=== PATIENT | male | born 1945 | race Caucasian/White ===

== ENCOUNTER → 2018-09-02 | Outpatient (CLI) | payer OTHER | LOC: RAD 11:09 | DX: J44.9 Chronic obstructive pulmonary disease, unspecified (principal) ==

== ENCOUNTER → 2019-01-04 | Outpatient (CLI) | payer OTHER | LOC: RAD 10:03 | DX: J44.9 Chronic obstructive pulmonary disease, unspecified (principal); J30.1 Allergic rhinitis due to pollen; R76.8 Other specified abnormal immunological findings in serum; K21.9 Gastro-esophageal reflux disease without esophagitis; R21 Rash and other nonspecific skin eruption; L29.9 Pruritus, unspecified; D72.1 Eosinophilia ==

== ENCOUNTER → 2019-03-17 | Outpatient (CLI) | payer OTHER | LOC: NUC 11:38 | DX: I48.91 Unspecified atrial fibrillation (principal); I10 Essential (primary) hypertension; E78.5 Hyperlipidemia, unspecified; J44.9 Chronic obstructive pulmonary disease, unspecified; Z87.891 Personal history of nicotine dependence ==

== ENCOUNTER → 2019-03-21 | Outpatient (CLI) | payer OTHER ==
--- NOTE | 2019-03-21 10:03 | 2DMMODE ---
[facility] [place] [address] 2 D/M-MODE ECHOCARDIOGRAM Name: RAMONITAJACQUIE L Room #: REG [facility]#: [id number] ������������� Admission: 03/21/19 ������������� Attend Phys: Jerald Hodges MD Discharge: ��� ������������� ��� Date of : 49 Date of Service: 03/21/19 1002 �� Report #: [id number] �������� ��������������������������������������������[id number] THIS REPORT FOR: //name// APPROVED REPORT Study performed: 03/21/2019 08:58:17 EXAM: Comprehensive 2D, Doppler, and color-flow Echocardiogram Patient Location: Out-Patient Status: routine BSA: 1.89 HR: 66 bpm BP: 154/80 mmHg Rhythm: Sinus arrhythmia Other Information Study Quality: Good Indications Atrial Fibrillation 2D Dimensions RVDd: 34.21 mm IVSd: 12.00 (7-11mm) LVOT Diam: 20.95 (18-24mm) LVDd: 43.72 mm PWd: 9.42 (7-11mm) Ascending Ao: 32.33 (22-36mm) LVDs: 31.09 (25-40mm) Aortic Root: 33.91 mm Volumes Left Atrial Volume (Systole) Single Plane 4CH: 38.47 mL Single Plane 2CH: 46.93 mL LA ESV Index: 24.00 mL/m2 Aortic Valve AoV Peak Lonny.: 1.36 m/s AO Peak Gr.: 7.40 mmHg LVOT Max P.46 mmHg LVOT Max V: 1.17 m/s LO Vmax: 2.96 cm2 Mitral Valve E/A Ratio: 0.8 MV Decel. Time: 215.71 ms MV E Max Lonny.: 0.83 m/s [facility] [address] [place] [address] 2 D/M-MODE ECHOCARDIOGRAM Name: JACQUIE SHIPMAN Room #: [facility]#: [id number] ������������� Admission: 03/21/19 ������������� Attend Phys: Jerald Hodges MD Discharge: ��� ������������� ��� Date of : 49 Date of Service: 03/21/19 1002 �� Report #: [id number] �������� ��������������������������������������������[id number] MV A Lonny.: 1.08 m/s MV PHT: 62.55 ms IVRT: 96.89 ms Pulmonary Valve PV Peak Lonny.: 1.02 m/s PV Peak Gr.: 4.13 mmHg Pulmonary Vein P Vein S: 0.70 m/s P Vein A: 0.32 m/s P Vein D: 0.39 m/s P Vein A Dur.: 138.4 msec P Vein S/D Ratio: 1.79 Tricuspid Valve RAP Estimate: 5.00 mmHg Left Ventricle The left ventricle is normal size. There is normal LV segmental wall motion. Mild basal septal hypertrophy is present. Left ventricular systolic function is normal. LVEF is 60%. Mild diastolic dysfunction is present (impaired relaxation pattern). Right Ventricle The right ventricle is normal size. The right ventricular systolic function is normal. Atria The left atrium size is normal. The right atrium size is normal. Aortic Valve Aortic valve is mildly calcified. No aortic regurgitation is present. There is no aortic valvular stenosis. Mitral Valve The mitral valve is normal in structure. Trace mitral regurgitation. Tricuspid Valve The tricuspid valve is normal in structure. There is no tricuspid valve regurgitation noted. Unable to assess PA pressure. Pulmonic Valve The pulmonary valve is normal in structure. Trace to mild pulmonic regurgitation. Great Vessels [facility] [place] [address] 2 D/M-MODE ECHOCARDIOGRAM Name: JACQUIE SHIPMAN Room #: REG [facility]#: [id number] ������������� Admission: 03/21/19 ������������� Attend Phys: Jerald Hodges MD Discharge: ��� ������������� ��� Date of : 49 Date of Service: 03/21/19 1002 �� Report #: [id number] �������� ��������������������������������������������[id number] The aortic root is normal in size. The ascending aorta is normal in size. IVC is normal in size and collapses >50% with inspiration. Pericardium There is no pericardial effusion. <Conclusion> The left ventricle is normal size. Left ventricular systolic function is normal. Mild diastolic dysfunction is present (impaired relaxation pattern). The right ventricle is normal size. The left atrium size is normal. Aortic valve is mildly calcified. Trace mitral regurgitation. There is no tricuspid valve regurgitation noted. ��������������������������������������������� <ELECTRONICALLY SIGNED> ���������������������������������������� By: Jerald Hodges MD ��������������������������������������������� 03/21/19 1002 1002 1002 Jerald Hodges MD /INF
== END ==
LOC: CV
DX: I08.8 Other rheumatic multiple valve diseases (principal); I48.91 Unspecified atrial fibrillation; Z88.8 Allergy status to other drugs, medicaments and biological substances

== ENCOUNTER → 2019-04-20 | Outpatient (CLI) | payer OTHER ==
[~2019-04-20] MED LIST: ACCUNEB SO1.25 MG/1 INH; ASMANEX220 MC2; ATENOLOL 50MG T50 M1 PO; CLARITIN10 MG PO; COZAAR 25 MG TA25 M1 PO; FLECAINIDE ACET50 M1 PO; GABAPENTIN 100100 MG PO; KLOR-CON 1010 MEQ PO; METHOTREXATE 22.5 MG PO; OMEPRAZOLE 20 M20 M1 PO; PREDNISONE 10 M10 MG PO; PREDNISONE 5 MG5 MG PO; SIMVASTATIN40 MG PO; XARELTO20 MG PO; ZYLOPRIM300 MG PO
[2019-04-20 09:22] LABS: HEMATOCRIT 37.8 % (42.0-52.0); HEMOGLOBIN 13.2 gm/dL (14.0-18.0); MCH 36.1 pg (26.0-34.0); MCV 103.2 fL (80.0-100.0); RBC 3.66 mil/uL (4.50-6.00); RDW 13.8 % (10.5-14.5); WBC 6.5 thou/uL (4.0-11.0)
[2019-04-20 09:31] LABS: ALBUMIN 3.7 g/dL (3.4-5.0); CALCIUM 9.2 mg/dL (8.5-10.1); POTASSIUM 4.7 mmol/L (3.5-5.1); TOTAL BILIRUBIN 0.7 mg/dL (<0.1-1.0); TOTAL PROTEIN 6.7 g/dL (6.4-8.2)
== END ==
LOC: CAT 08:29
PROVIDERS: Internal Medicine Cardiovascular Disease
DX: I48.91 Unspecified atrial fibrillation (principal); I25.10 Atherosclerotic heart disease of native coronary artery without angina pectoris; M47.814 Spondylosis without myelopathy or radiculopathy, thoracic region

== ENCOUNTER → 2019-04-21 | Outpatient (CLI) | payer OTHER ==
[~2019-04-21] VITALS: Ht 175.3 cm; Wt 74.8 kg
[2019-04-21 07:09] VITALS: BP 189/78
--- NOTE | 2019-04-21 08:44 | TEE ---
[facility] [address] [place] [address] TRANSESOPHAGEAL ECHOCARDIOGRAM Name: RAMONITAJACQUIE Maci Room #: REG [facility]#: [id number] Admission: 04/21/19 Attend Phys: Vitor rCuz Discharge: Date of : 49 Date of Service: 04/21/19 0843 Report #: [id number] THIS REPORT FOR: //name// APPROVED REPORT Study performed: 04/21/2019 07:30:02 EXAM: Comprehensive 2D, Doppler, and color-flow Echocardiogram Patient Location: Out-Patient Room #: CVL Status: routine BSA: 1.89 HR: 65 bpm BP: 208/90 mmHg Rhythm: NSR Other Information Study Quality: Good Indications Atrial Fibrillation Echo Enhancing Agent Indication: Rule out Shunt Agent(s) / Amount(s) Used: Agitated Saline 6 cc Procedure After obtaining informed consent, patient underwent transesophageal echo in the [employer]. Type of Sedation : Conscious Sedation Sedation was achieved intravenously with: Versed (3.5) Fentanyl (100) Transesophageal probe was inserted and advanced into esophagus without difficulty by Diaz Ríos MD. The MARIMAR was performed without complications. Throughout the procedure, the blood pressure, pulse oximetry, cardiac rhythm, and rate were monitored. The patient tolerated the procedure without adverse effects. Recovery from conscious sedation was uneventful and vital signs were stable. Left Ventricle The left ventricle is normal size. There is normal LV segmental wall motion. There is normal left ventricular wall thickness. Left [facility] [address] [place] [address] TRANSESOPHAGEAL ECHOCARDIOGRAM Name: JACQUIE SHIPMAN Room #: REG [facility]#: [id number] Admission: 04/21/19 Attend Phys: [facility] Discharge: Date of : 49 Date of Service: 04/21/19 0843 Report #: [id number] ventricular systolic function is normal. LVEF is 55-60%. Right Ventricle The right ventricle is normal size. The right ventricular systolic function is normal. Atria The left atrium size is normal. No thrombus is visualized in the left atrium or appendage. No shunting noted with contrast bubble injection. The right atrium size is normal. Aortic Valve Aortic valve is trileaflet. No aortic regurgitation is present. There is no aortic valvular stenosis. Mitral Valve The mitral valve is normal in structure. Trace mitral regurgitation. Tricuspid Valve The tricuspid valve is normal in structure. Trace tricuspid regurgitation. Pulmonic Valve The pulmonary valve is normal in structure. Trace pulmonic regurgitation. Great Vessels The aortic root is normal in size. Mild atherosclerosis throughout aorta Pericardium There is no pericardial effusion. <Conclusion> Left ventricular systolic function is normal. There is normal LV segmental wall motion. LVEF is 55-60%. No thrombus is visualized in the left atrium or appendage. No shunting noted with contrast bubble injection. Aortic valve is trileaflet. No aortic regurgitation or stenosis The mitral valve is normal in structure. Trace mitral regurgitation. [facility] [address] [place] [address] TRANSESOPHAGEAL ECHOCARDIOGRAM Name: JACUQIE SHIPMAN Room #: REG [facility]#: [id number] Admission: 04/21/19 Attend Phys: [facility] Discharge: Date of : 49 Date of Service: 04/21/19842 Report #: [id number] Mild atherosclerosis throughout aorta There is no pericardial effusion. <ELECTRONICALLY SIGNED> By: Diaz Ríos MD, FACC 04/21/1941 2 2 Diaz Ríos MD, FACC /INF
== END | disposition home or self-care (01) ==
LOC: CATH 06:22
DX: I34.0 Nonrheumatic mitral (valve) insufficiency (principal); I70.0 Atherosclerosis of aorta; I10 Essential (primary) hypertension; J43.9 Emphysema, unspecified; I73.9 Peripheral vascular disease, unspecified; K21.9 Gastro-esophageal reflux disease without esophagitis; E78.5 Hyperlipidemia, unspecified; Z82.49 Family history of ischemic heart disease and other diseases of the circulatory system; Z87.891 Personal history of nicotine dependence; Z98.890 Other specified postprocedural states; Z79.899 Other long term (current) drug therapy

== ENCOUNTER 2019-05-18 06:31 | Observation (INO) | payer OTHER ==
[2019-05-18] VITALS (15 sets, daily range): BP systolic 117–180; BP diastolic 45–95
[~2019-05-18] VITALS: Ht 175.3 cm; Wt 78.5 kg
[2019-05-18 07:26] LABS: ABSOLUTE NEUTROPHILS 3.1 thou/uL (1.4-8.2); BASOPHILS 0.6 % (0.0-2.0); EOSINOPHILS 11.6 % (0.0-3.0); HEMATOCRIT 38.9 % (42.0-52.0); HEMOGLOBIN 13.3 gm/dL (14.0-18.0); LYMPHOCYTES 19.7 % (24.0-44.0); MCHC 34.1 g/dL (28.0-37.0); MCV 105.5 fL (80.0-100.0); MONOCYTES 10.2 % (1.0-8.0); PLATELET COUNT 227 thou/uL (150-400); POLYS 57.9 % (36.0-66.0); RBC 3.69 mil/uL (4.50-6.00); RDW 13.5 % (10.5-14.5); WBC 5.3 thou/uL (4.0-11.0)
[2019-05-18 07:36] LABS: CALCIUM 8.9 mg/dL (8.5-10.1); POTASSIUM 4.7 mmol/L (3.5-5.1)
[2019-05-18 07:39] LABS: APTT 30.6 Seconds (24.5-32.8); PROTIME 10.3 Seconds (9.3-11.4)
[2019-05-18 07:43] LABS: ALBUMIN 3.3 g/dL (3.4-5.0); TOTAL BILIRUBIN 0.5 mg/dL (<0.1-1.0); TOTAL PROTEIN 6.2 g/dL (6.4-8.2)
[2019-05-19 04:59] VITALS: BP 122/51
[2019-05-19 07:25] VITALS: BP 159/76
[2019-05-19 09:20] VITALS: BP 159/76
--- NOTE | 2019-05-20 14:56 | P ---
[facility] [place] [place] [address] PROCEDURE REPORT Name: JACQUIE SHIPMAN Room #: 200-[facility] Meza#: [id number] Admission: 05/18/19 Attend Phys: Vitor Cruz MD Discharge: 05/19/19 Date of : 49 Report #: [id number] THIS REPORT FOR: //name// CC: Vitor Mccord PREOPERATIVE DIAGNOSIS: Atrial fibrillation. POSTOPERATIVE DIAGNOSIS: Atrial fibrillation. INDICATIONS FOR PROCEDURE: The patient is a 73-year-old with a history of atrial fibrillation, here for an ablation. ANESTHESIA: The patient underwent general anesthesia with no anesthesia related complications. PROCEDURES PERFORMED: 1. Atrial fibrillation ablation, CPT code 93592. 2. 3D mapping, CPT code 11000. 3. Intracardiac echo, CPT code 27335. DESCRIPTION OF PROCEDURE: The patient underwent informed consent. We discussed the details of the procedure including the risks, which include but not limited to bleeding, vascular damage, cardiac perforation as well as stroke or PR. He understood these risks and is willing to proceed. The patient was brought to the EP laboratory in fasting and sedated state, prepped and draped in sterile fashion. I injected lidocaine at the right femoral groin and then attempted to obtain access to the right femoral vein. I had significant difficulties trying to find the right femoral vein, which is unusual. I ended up using ultrasound and I could find the artery and then finally visualized the vein. I was finally able to get access into the right femoral vein x 1. I decided to place my other sheaths in the left femoral vein. In the right femoral vein, I placed an 8-Welsh short sheath and in left femoral vein, I placed a 7 and 9-Welsh short sheath using the modified Seldinger technique. Next, under fluoroscopy, I placed a decapolar catheter easily in the coronary sinus and I placed the ice catheter in the right atrium and using intracardiac ultrasound, I created 3D geometry of the left atrium with visualization of the left atrial appendage, the left common ostium, which had a superior and inferior branch in the right superior and right inferior pulmonary veins. The patient was systemically heparinized and a transseptal was performed using an SL1 sheath and a [place] needle. This was straightforward and I was able to advance my wire into the left common ostium and then advanced the cryo sheath into the left atrium. Via the cryo sheath, I used a Lasso catheter and created detailed 3D voltage map of the left atrium. Next, I placed the cryoballoon into the left common ostium. I performed the first attempt by subselecting the superior branch of the left common ostium and I performed a [facility] [address] [place] [address] PROCEDURE REPORT Name: JACQUIE SHIPMAN Room #: 200-[facility]#: [id number] Admission: 05/18/19 Attend Phys: Vitor Cruz MD Discharge: 05/19/19 Date of : 49 Report #: [id number] 300-second freeze, followed by a 4-minute freeze. This resulted in isolation of the superior branch. Then, I turned my attention to the left inferior pulmonary vein. I performed a 300-second freeze, which resulted in isolation of the vein within 115 seconds, but then the vein reconnected. I performed a second 300-second freeze, which resulted in isolation within 110 seconds, but then the vein reconnected. I then performed a 4-minute freeze with the balloon anchored more inferiorly. This was a nonocclusive freeze trying to get the inferior aspect of the common ostium. This resulted in isolation of the vein within 90 seconds. I then performed a fourth freeze of 4 minutes duration and kept the balloon more between the ryan of the 2 branches of the common ostium. I then turned my attention to the right superior pulmonary vein. Of note, when the patient arrived to the procedure, he was in AFib with ventricular cycle length of 900 milliseconds, QRS duration 75 milliseconds, QT interval 411 milliseconds. After my first freeze in the superior branch of the left common ostium as the vein potentials were slowing, the patient converted to sinus rhythm. As such, I went to the right-sided veins, phrenic nerve pacing was performed via the decapolar catheter placed at the subclavian vessel. I performed a single 3-minute freeze, as the vein isolated within 45 seconds. I then turned my attention to the right inferior pulmonary vein. I performed a 120-second freeze. The vein isolated within 24 seconds of this freeze. I came off early as the attempts were getting cold and I wanted to avoid any phrenic nerve issues. Therefore, I performed a less selective freeze of 110 seconds in this vein. Next, I re-interrogated the left common ostium, the lower branch remained isolated, but the upper branch was again reconnected. Therefore, I performed a 4-minute followed by 3-minute freeze and this upper branch was now isolated. Next, I removed the cryoablation balloon and placed the Lasso catheter in the left atrium and I created a detailed 3D voltage map of the left atrium, which showed that we had created a wide circumferential ablation of the left and right-sided pulmonary veins. The patient remained in sinus rhythm with a sinus cycle length of 860 milliseconds, NV interval 190 milliseconds, QRS duration 75 milliseconds, QT interval 455 milliseconds. As such, all catheters and sheaths were pulled and hemostasis was obtained. The patient received systemic protamine and once ACT was within acceptable range, all catheters and sheaths were pulled. CONCLUSIONS: Successful atrial fibrillation ablation with isolation of the left common ostium in the right superior and right inferior pulmonary veins. <ELECTRONICALLY SIGNED> By: Vitor Cruz MD 05/20/19 1456 1209 [id number] Vitor Cruz MD /nt
== END 2019-05-19 11:00 | disposition home or self-care (01) ==
LOC: CATH 06:31 → 2N 11:30 → CATH 16:28 → ENTRNSPT 05-19 10:37 → EDTRNSPTSTS 05-19 10:41 → 2N 05-19 11:00
PROVIDERS: ADMIT Internal Medicine Cardiovascular Disease
DX: I48.0 Paroxysmal atrial fibrillation (principal); I10 Essential (primary) hypertension; Z95.1 Presence of aortocoronary bypass graft; Z79.899 Other long term (current) drug therapy
CPT/HCPCS: 62110; 62900; 65020; 65040; 65130; 70005

== ENCOUNTER 2019-05-23 11:58 | Emergency (ER) | payer OTHER ==
[~2019-05-23] VITALS: Ht 175.3 cm; Wt 74.8 kg
[2019-05-23 14:24] VITALS: BP 175/78
[2019-05-23] MEDS ORDERED: MIRALAX17 GM PO (14:48)
[2019-05-23] MEDS ORDERED: DULCOLAX10 MG RECTAL (14:49)
== END 2019-05-23 14:49 | disposition home or self-care (01) ==
LOC: ER 11:58
DX: K59.00 Constipation, unspecified (principal); I10 Essential (primary) hypertension; J44.9 Chronic obstructive pulmonary disease, unspecified; I73.9 Peripheral vascular disease, unspecified; I48.91 Unspecified atrial fibrillation

== ENCOUNTER → 2019-09-13 | Outpatient (CLI) | payer OTHER ==
[~2019-09-13] MED LIST changes: +DULCOLAX10 MG RECTAL; +MIRALAX17 GM PO
== END ==
LOC: SJCVC 10:46
DX: R94.31 Abnormal electrocardiogram [ECG] [EKG] (principal); I48.0 Paroxysmal atrial fibrillation; I49.5 Sick sinus syndrome; I10 Essential (primary) hypertension; J44.9 Chronic obstructive pulmonary disease, unspecified; I73.9 Peripheral vascular disease, unspecified; Z79.899 Other long term (current) drug therapy

== ENCOUNTER → 2020-01-11 | Outpatient (CLI) | payer OTHER | LOC: SJCVC 09:57 | DX: R94.31 Abnormal electrocardiogram [ECG] [EKG] (principal); I48.0 Paroxysmal atrial fibrillation; I10 Essential (primary) hypertension; E78.00 Pure hypercholesterolemia, unspecified; Z90.49 Acquired absence of other specified parts of digestive tract; Z79.899 Other long term (current) drug therapy; Z87.891 Personal history of nicotine dependence ==

== ENCOUNTER → 2020-01-24 | Outpatient (CLI) | payer OTHER | LOC: CAT 06:35 | DX: Z13.6 Encounter for screening for cardiovascular disorders (principal); I25.10 Atherosclerotic heart disease of native coronary artery without angina pectoris; E78.00 Pure hypercholesterolemia, unspecified ==

== ENCOUNTER → 2020-03-20 | Outpatient (CLI) | payer OTHER ==
[~2020-03-20] MED LIST changes: +COREG12.5 MG PO; +NORVASC10 MG PO; +PREDNISOLONE SO10 MG PO
== END ==
LOC: SJCVC 16:29
PROVIDERS: ATTEND Internal Medicine Cardiovascular Disease
DX: R94.31 Abnormal electrocardiogram [ECG] [EKG] (principal); I48.0 Paroxysmal atrial fibrillation; I48.3 Typical atrial flutter; I49.5 Sick sinus syndrome; Z79.899 Other long term (current) drug therapy; Z87.891 Personal history of nicotine dependence

== ENCOUNTER → 2020-04-02 | Outpatient (CLI) | payer OTHER ==
[~2020-04-02] MED LIST changes: -COREG12.5 MG PO; -NORVASC10 MG PO; -PREDNISOLONE SO10 MG PO
== END ==
LOC: LAB 13:27
PROVIDERS: ATTEND Family Medicine
DX: Z01.812 Encounter for preprocedural laboratory examination (principal); Z11.59 Encounter for screening for other viral diseases

== ENCOUNTER 2020-04-05 06:32 | Observation (INO) | payer OTHER ==
[2020-04-05] VITALS (11 sets, daily range): BP systolic 130–196; BP diastolic 55–102
[~2020-04-05] VITALS: Ht 172.7 cm; Wt 71.2 kg
[~2020-04-05 06:32] MED LIST changes: -ACCUNEB SO1.25 MG/1 INH; -ASMANEX220 MC2; -CLARITIN10 MG PO
[2020-04-05 07:29] LABS: ABSOLUTE NEUTROPHILS 2.9 thou/uL (1.4-8.2); BASOPHILS 0.8 % (0.0-2.0); EOSINOPHILS 1.2 % (0.0-3.0); HEMATOCRIT 36.6 % (42.0-52.0); HEMOGLOBIN 13.1 gm/dL (14.0-18.0); MCH 37.5 pg (26.0-34.0); MCHC 35.9 g/dL (28.0-37.0); MCV 104.4 fL (80.0-100.0); MONOCYTES 7.4 % (1.0-8.0); PLATELET COUNT 202 thou/uL (150-400); POLYS 57.6 % (36.0-66.0); RBC 3.51 mil/uL (4.50-6.00); RDW 15.2 % (10.5-14.5)
[2020-04-05] MEDS ORDERED: PREDNISOLONE SO10 MG PO (07:29)
[2020-04-05] MEDS ORDERED: COREG12.5 MG PO (07:30)
[2020-04-05 07:43] LABS: CALCIUM 8.3 mg/dL (8.5-10.1); CREATININE 0.8 mg/dL (0.7-1.3)
[2020-04-05 07:49] LABS: ALBUMIN 3.3 g/dL (3.4-5.0); TOTAL BILIRUBIN 0.6 mg/dL (0.2-1.0); TOTAL PROTEIN 6.4 g/dL (6.4-8.2)
[2020-04-05 08:02] LABS: PROTIME 10.2 Seconds (9.3-11.4)
--- NOTE | 2020-04-05 11:51 | P ---
[facility] [place] [address] [place] [address] PROCEDURE REPORT Name: JACQUIE SHIPMAN Room #: REG [facility]#: [id number] Admission: 04/05/20 Attend Phys: Vitor Cruz MD Discharge: Date of : 49 Report #: [id number] THIS REPORT FOR: cc: Mejia Kamara MD, Neal A. MD Couchonnal, Luis F. MD ~ CC: Vitor Kamara DATE OF SERVICE: 04/05/2020 PREOPERATIVE DIAGNOSIS: Atrial fibrillation and atrial flutter. POSTOPERATIVE DIAGNOSIS: Atrial fibrillation and atrial flutter. PROCEDURES PERFORMED: 1. Atrial fibrillation ablation, CPT code 74084. 2. 3D mapping, CPT code 47378. 3. Intracardiac echo, CPT code 29729. 4. Focal ablation, CPT code 37603. 5. Second pathway ablation, CPT code 72030. HISTORY: The patient is a 74-year-old, who underwent AFib ablation back in 2019 with clinical recurrence. He is here for repeat ablation. ANESTHESIA: The patient underwent general anesthesia with no anesthesia related complications. DESCRIPTION OF PROCEDURE: The patient underwent informed consent. We discussed the details of the procedure including the risks, which include but not limited to bleeding, infection, vascular damage, cardiac perforation, and pneumothorax. He understood these risks and is willing to proceed. The patient was brought to EP laboratory in a fasting and sedated state, prepped and draped in a sterile fashion. I used intracardiac ultrasound to obtain access to the right femoral vein due to access issues last time. I obtained a right femoral vein access x 3, placing a 2, 8, and a 9-Azeri short sheath. In the left femoral vein, I placed a 7-Azeri short sheath. Under fluoroscopy, I placed a decapolar catheter into the coronary sinus for left atrial pacing and recording and I placed an ICE catheter into the right atrium for intracardiac ultrasound. Next, using intracardiac ultrasound, I created a detailed 3D geometry of the left atrium. Of note, he does have a very rotated left atrium. He has a left common with a left superior and left inferior branch. He has 2 right-sided veins as well. This was merged with the patient's cardiac CT scan. The patient then was systemically heparinized and a transseptal was performed using a [place] needle and SL1 sheath. This was straightforward and I was able [address] [address] PROCEDURE REPORT Name: JACQUIE SHIPMAN [id number] Admission: 04/05/20 Attend Phys: Vitor Cruz MD Discharge: Date of : 49 Report #: [id number] to advance the SL1 into the left atrium. I then exchanged for an Agilis sheath and created a detailed 3D voltage map of the left atrium. All veins were isolated except the left superior pulmonary vein branch. Next, I removed my PentaRay catheter and performed ablation of the left superior pulmonary vein. This appeared to be primarily connected along the ridge and ryan of the left superior pulmonary vein. I went back and re-interrogated, it was still connected. I performed additional ablation and then we had evidence of entrance and exit block. After re-isolation of the left superior pulmonary vein, I performed posterior wall isolation. I performed a roofline and a posterior box lesion set as well. Esophageal temperatures were monitored and were stable throughout this portion of the procedure. ATRIAL FLUTTER ABLATION: Next, I went to the right atrium and performed cavotricuspid isthmus dependent flutter ablation. Pre-ablation, the transisthmus conduction time was 50 milliseconds. Ablation was performed at 50 roman via the Agilis sheath, but post-ablation, there was still connection. I therefore used a ramp sheath and this allowed me to get the posterior aspect of the isthmus and achieved bidirectional block with transisthmus conduction time of 145 milliseconds. As such, all catheters and sheaths were pulled. Hemostasis was obtained. The patient awoke neurologically and hemodynamically intact. No complications and no significant bleeding. CONCLUSIONS: 1. Successful AFib ablation with re-isolation of the left superior pulmonary vein. 2. Successful posterior wall isolation of the left atrium. 3. Successful atrial flutter ablation with evidence of bidirectional block. <ELECTRONICALLY SIGNED> By: Vitor Cruz MD 04/05/20 1151 1048 1146 Vitor Cruz MD /nt
[2020-04-05] MEDS ORDERED: CLARITIN10 MG PO (14:55)
[2020-04-05] MEDS ORDERED: ACCUNEB SO1.25 MG/1 INH (14:56)
--- NOTE | 2020-04-05 17:43 | NUR ---
PT CARE ASSUMED APPROX 1215. ASSESSMENTS CHARTED. PT DENIES PAIN AND SOA. UP WITH STEADY GAIT. BP WAS ELEVATED WHEN PT ARRIVED. PT MEDICATED AND VSS AT THIS TIME. PT COMPLIED WITH POST PROCEDURE BEDREST. UP AT THIS TIME WITH STEADY GAIT. WAS AT BEDSIDE EARLIER. BOTH DENY QUESTIONS OR CONCERNS REGARDING POC. PT TOELRATING POC. BILATERAL GRON SITES C/D/I. NO DISTRESS NOTED.
[2020-04-06 01:25] VITALS: BP 162/79
[2020-04-06 04:09] VITALS: BP 158/83
--- NOTE | 2020-04-06 06:42 | NUR ---
PATIENT IS PROGRESSING IN HIS CARE PLAN. VITAL SIGNS STABLE WITH PATIENT HAVING NO COMPLAINTS OF PAIN OR NAUSEA. FULLY ORIENTED, PATIENT IS ABLE TO CALL APPROPRIATELY FOR ASSISTANCE AND PARTICIPATE IN CARE. UP AD GUNNAR THROUGHOUT SHIFT, PATIENT IS STRONG AND BALANCED WHEN AMBULATING. PROBABLE DISCHARGE TODAY. CONTINUE PLAN OF CARE.
[2020-04-06] MEDS ORDERED: ASMANEX220 MC2 (07:35)
[2020-04-06 08:05] VITALS: BP 164/94
[2020-04-06] MEDS ORDERED: NORVASC10 MG PO (08:12)
[2020-04-06 09:11] VITALS: BP 164/94
--- NOTE | 2020-04-06 09:29 | NUR ---
PT CARE ASSUMED APPROX 0700. ASSESSMENT CHARTED. PT DENIES PAIN AND SOA. BLOOOD PRESSURE SLIGHTLY ELEVATED THIS AM. MED ADDED TO POC. VITAL SIGNS OTHERWISE STABLE. PT TOLERATING POC. UP WITH STEADY GAIT. DISCHARGING AT THIS TIME. 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 REINFORCED THIS NURSE. PT DENIES QUESTIONS OR CONCERNS REGARDING POST HOSPITAL CARES. IV OUT, TELE OFF. WILL ESCORT PT OUT ONCE TRANSPORTATION ARRIVES.
== END 2020-04-06 10:20 | disposition home or self-care (01) ==
LOC: CATH 06:32 → 2N 12:52
PROVIDERS: ADMIT Internal Medicine Cardiovascular Disease; ATTEND Internal Medicine Cardiovascular Disease
DX: I48.91 Unspecified atrial fibrillation (principal); I48.92 Unspecified atrial flutter; I10 Essential (primary) hypertension; J44.9 Chronic obstructive pulmonary disease, unspecified; I49.5 Sick sinus syndrome; I73.9 Peripheral vascular disease, unspecified; Z96.21 Cochlear implant status; Z95.1 Presence of aortocoronary bypass graft; Z79.01 Long term (current) use of anticoagulants; Z79.899 Other long term (current) drug therapy
CPT/HCPCS: 62110; 62900; 70005

== ENCOUNTER → 2020-06-19 | Outpatient (CLI) | payer OTHER ==
[~2020-06-19] MED LIST changes: +ACCUNEB SO1.25 MG/1 INH; +ASMANEX220 MC2; +CLARITIN10 MG PO; +COREG12.5 MG PO; +NORVASC10 MG PO; +PREDNISOLONE SO10 MG PO
== END ==
LOC: SJCVC 09:59
PROVIDERS: ATTEND Internal Medicine Cardiovascular Disease
DX: I48.0 Paroxysmal atrial fibrillation (principal); R06.09 Other forms of dyspnea; I10 Essential (primary) hypertension; Z79.899 Other long term (current) drug therapy; Z87.891 Personal history of nicotine dependence

== ENCOUNTER → 2020-07-03 | Outpatient (CLI) | payer OTHER | LOC: SJCVCIMAG 08:49 | PROVIDERS: ATTEND Internal Medicine Cardiovascular Disease | DX: R06.00 Dyspnea, unspecified (principal); I48.91 Unspecified atrial fibrillation; I10 Essential (primary) hypertension; J44.9 Chronic obstructive pulmonary disease, unspecified; Z79.01 Long term (current) use of anticoagulants; Z79.899 Other long term (current) drug therapy ==

== ENCOUNTER → 2020-07-10 | Outpatient (CLI) | payer OTHER | LOC: SJCVC 11:01 | PROVIDERS: ATTEND Internal Medicine Cardiovascular Disease | DX: I48.0 Paroxysmal atrial fibrillation (principal); R94.31 Abnormal electrocardiogram [ECG] [EKG]; I10 Essential (primary) hypertension; E78.5 Hyperlipidemia, unspecified; Z79.899 Other long term (current) drug therapy; Z87.891 Personal history of nicotine dependence ==

== ENCOUNTER → 2020-07-18 | Outpatient (CLI) | payer OTHER | LOC: RAD 11:59 | PROVIDERS: ATTEND Internal Medicine Pulmonary Disease | DX: R06.02 Shortness of breath (principal) ==

== ENCOUNTER → 2020-11-08 | Outpatient (CLI) | payer OTHER | LOC: LAB 10:09 | PROVIDERS: ATTEND Internal Medicine Pulmonary Disease | DX: Z01.812 Encounter for preprocedural laboratory examination (principal); Z20.822 Contact with and (suspected) exposure to COVID-19 ==

== ENCOUNTER → 2020-12-31 | Outpatient (CLI) | payer OTHER | LOC: SJCVC 09:22 | PROVIDERS: ATTEND Internal Medicine Cardiovascular Disease | DX: R94.31 Abnormal electrocardiogram [ECG] [EKG] (principal); I49.1 Atrial premature depolarization; I48.0 Paroxysmal atrial fibrillation; I10 Essential (primary) hypertension; E78.00 Pure hypercholesterolemia, unspecified; J44.9 Chronic obstructive pulmonary disease, unspecified; I48.91 Unspecified atrial fibrillation; K21.9 Gastro-esophageal reflux disease without esophagitis; E78.5 Hyperlipidemia, unspecified; Z87.891 Personal history of nicotine dependence; Z79.899 Other long term (current) drug therapy; Z72.89 Other problems related to lifestyle; Z88.6 Allergy status to analgesic agent ==

== ENCOUNTER → 2021-07-03 | Outpatient (CLI) | payer OTHER | LOC: SJCVC 10:48 | PROVIDERS: ATTEND Internal Medicine Cardiovascular Disease | DX: R94.31 Abnormal electrocardiogram [ECG] [EKG] (principal); I10 Essential (primary) hypertension; I48.0 Paroxysmal atrial fibrillation; E78.00 Pure hypercholesterolemia, unspecified; R60.9 Edema, unspecified; J44.9 Chronic obstructive pulmonary disease, unspecified; K21.9 Gastro-esophageal reflux disease without esophagitis; Z82.49 Family history of ischemic heart disease and other diseases of the circulatory system; Z88.8 Allergy status to other drugs, medicaments and biological substances; Z79.899 Other long term (current) drug therapy; Z72.89 Other problems related to lifestyle; Z87.891 Personal history of nicotine dependence ==

== ENCOUNTER → 2021-07-09 | Outpatient (CLI) | payer OTHER | LOC: SJCVC 10:40 | PROVIDERS: ATTEND Internal Medicine Cardiovascular Disease | DX: I48.0 Paroxysmal atrial fibrillation (principal); I10 Essential (primary) hypertension; I48.3 Typical atrial flutter; J44.9 Chronic obstructive pulmonary disease, unspecified; I73.9 Peripheral vascular disease, unspecified; I49.5 Sick sinus syndrome; G47.33 Obstructive sleep apnea (adult) (pediatric); K21.9 Gastro-esophageal reflux disease without esophagitis; E78.5 Hyperlipidemia, unspecified; Z95.828 Presence of other vascular implants and grafts; Z87.891 Personal history of nicotine dependence; Z72.89 Other problems related to lifestyle; Z79.899 Other long term (current) drug therapy; Z82.49 Family history of ischemic heart disease and other diseases of the circulatory system; Z88.8 Allergy status to other drugs, medicaments and biological substances ==